=== PATIENT | female | born 1965 | race Caucasian/White ===

== ENCOUNTER 2021-09-14 11:23 | Outpatient (CLI) | payer BC | END 2021-09-14 11:24 | disposition home or self-care (01) | LOC: SCSRAD 11:23 | PROVIDERS: ATTEND Family Medicine | DX: R05.9 Cough, unspecified (principal) | CPT/HCPCS: 71046 ==

== ENCOUNTER 2022-07-22 07:42 | Day surgery (SDC) | payer BC ==
[2022-07-22 07:57] LABS: #Basophils 0.1 thou/uL (0.0-0.2); #Eosinphils 0.5 thou/uL (0.0-0.7); #Lymphocytes 2.2 thou/uL (1.20-3.40); #Monocytes 0.8 thou/uL (0.11-0.59); #Neutrophils 5.5 thou/uL (1.40-6.50); %Basophils 1.1 % (0.0-1.0); %Eosinophils 5.1 % (0.0-10.0); %Lymphocytes 24.3 % (21.0-51.0); %Monocytes 8.4 % (0.0-10.0); %Neutrophils 61.1 % (42.0-75.0); Hemoglobin 13.5 g/dL (12.0-16.0); Mean Corpuscular Hemoglobin 27.7 pg (27.0-31.0); Mean Corpuscular Volume 86.5 fl (78.0-98.0); Mean Platelet Volume 8.4 fL (7.4-10.4); Platelet Count 256 10x3/uL (130-400); RBC Distribution Width 12.7 % (11.5-14.5); Red Blood Cell (RBC) Count 4.87 mill/uL (4.20-5.40)
[2022-07-22 08:09] LABS: INR-International Normal Ratio 0.9; Prothrombin Time 12.7 sec (12.0-14.7)
[2022-07-22 08:10] LABS: PTT 30.3 sec (22.9-36.1)
[2022-07-22] MEDS ORDERED: Sodium Bicarbonate 2.5 MEQ/5 ML VIAL ONE (09:06)
[2022-07-22] MEDS ORDERED: Lidocaine 1% PF 5 ML VIAL ONE (09:06)
[2022-07-22] MEDS ORDERED: fentaNYL 50 mcg/mL 1 mL Vial ONE (09:06)
[2022-07-22] MEDS ORDERED: Midazolam HCl 2 mg/2 ml Vial ONE (09:07)
[2022-07-22 12:20] VITALS: BP 130/72; TEMP 97.9
== END 2022-07-22 11:35 | disposition home or self-care (01) ==
LOC: ULT 07:42
PROVIDERS: ATTEND Internal Medicine Gastroenterology
PROC: 0FB23ZX Excision of Left Lobe Liver, Percutaneous Approach, Diagnostic (ICD-10-PCS; principal; 2022-07-22)
DX: K75.81 Nonalcoholic steatohepatitis (NASH) (principal); K74.00 Hepatic fibrosis, unspecified; K83.1 Obstruction of bile duct; K21.9 Gastro-esophageal reflux disease without esophagitis; M19.90 Unspecified osteoarthritis, unspecified site; I10 Essential (primary) hypertension; E78.00 Pure hypercholesterolemia, unspecified; G47.30 Sleep apnea, unspecified; Z79.890 Hormone replacement therapy; Z79.899 Other long term (current) drug therapy; Z88.1 Allergy status to other antibiotic agents; Z88.2 Allergy status to sulfonamides; Z91.040 Latex allergy status
CPT/HCPCS: 47000; 76942; 85025; 85610; 85730; 88307; 88313; J2250; J3010

== ENCOUNTER 2022-07-25 15:01 | Observation (INO) | payer BC ==
[2022-07-25 17:10] LABS: #Basophils 0.1 thou/uL (0.0-0.2); #Eosinphils 0.5 thou/uL (0.0-0.7); #Monocytes 0.9 thou/uL (0.11-0.59); #Neutrophils 7.2 thou/uL (1.40-6.50); %Basophils 0.9 % (0.0-1.0); %Eosinophils 4.4 % (0.0-10.0); %Lymphocytes 21.4 % (21.0-51.0); %Monocytes 8.1 % (0.0-10.0); %Neutrophils 64.9 % (42.0-75.0); Hemoglobin 13.3 g/dL (12.0-16.0); Mean Corpuscular HGB CONC 31.8 g/dL (32.0-36.0); Mean Corpuscular Hemoglobin 26.3 pg (27.0-31.0); Mean Corpuscular Volume 82.8 fl (78.0-98.0); Mean Platelet Volume 10.3 fL (7.4-10.4); Platelet Count 291 10x3/uL (130-400); RBC Distribution Width 13.8 % (11.5-14.5); Red Blood Cell (RBC) Count 5.05 mill/uL (4.20-5.40); White Blood Cell (WBC) Count 11.1 10x3/uL (4.8-10.8)
[2022-07-25] MEDS ORDERED: Aspirin Chewable 81 MG TAB ONE (17:21)
[2022-07-25] MEDS ORDERED: Naproxen 500 MG TAB ONE (17:21)
[2022-07-25 17:32] LABS: ALT (SGPT) 29 U/L (8-55); AST (SGOT) 21 U/L (5-34); Albumin 4.5 g/dL (3.5-5.0); Alkaline Phosphatase 123 U/L (40-110); Anion Gap 13 mmol/L (10-20); BUN (Urea Nitrogen) 11 mg/dL (9.8-20.1); Bilirubin, Total 0.3 mg/dL (0.2-1.2); CK (CPK) 54 U/L (29-168); Calc. Creatinine Clearance 0 mL/min (70-130); Calcium 9.9 mg/dL (7.8-10.44); Carbon Dioxide 27 mmol/L (22-29); Chloride 103 mmol/L (98-107); Estimated GFR 83; Globulin 3.2 g/dL (2.4-3.5); Glucose 92 mg/dL (70-105); Lipase 16 U/L (8-78); Potassium 3.9 mmol/L (3.5-5.1); Protein, Total 7.7 g/dL (6.0-8.3); Sodium 139 mmol/L (136-145)
[2022-07-25 17:54] LABS: CKMB 0.7 ng/mL (0-6.6)
[2022-07-25] MEDS ORDERED: Ondansetron PF 4 MG/2 ML Vial IVP PRN (20:02)
[2022-07-25] MEDS ORDERED: Acetaminophen 325 MG TAB PO PRN (20:02)
[2022-07-25] MEDS ORDERED: Ondansetron ODT 4 MG TAB PO PRN (20:02)
[2022-07-25 21:22] LABS: Troponin I 0.077 ng/mL (< 0.028)
[2022-07-25] MEDS ORDERED: Morphine 2 MG/ML VIAL SLOW IVP PRN (23:30)
[2022-07-25] MEDS ORDERED: Nitroglycerin 2% Ointment 1 INCH/1 GM Packet TOP SCH (23:30)
[2022-07-25 23:57] LABS: Troponin I 0.099 ng/mL (< 0.028)
[2022-07-26 00:19] VITALS: BMI 36.6
[2022-07-26 04:42] LABS: #Basophils 0.1 thou/uL (0.0-0.2); #Eosinphils 0.7 thou/uL (0.0-0.7); #Monocytes 0.9 thou/uL (0.11-0.59); #Neutrophils 5.4 thou/uL (1.40-6.50); %Basophils 1.1 % (0.0-1.0); %Eosinophils 7.1 % (0.0-10.0); %Lymphocytes 29.4 % (21.0-51.0); %Monocytes 8.4 % (0.0-10.0); %Neutrophils 53.6 % (42.0-75.0); Hemoglobin 13.1 g/dL (12.0-16.0); Mean Corpuscular HGB CONC 31.7 g/dL (32.0-36.0); Mean Corpuscular Hemoglobin 27.1 pg (27.0-31.0); Mean Platelet Volume 10.1 fL (7.4-10.4); Platelet Count 281 10x3/uL (130-400); RBC Distribution Width 13.5 % (11.5-14.5); Red Blood Cell (RBC) Count 4.84 mill/uL (4.20-5.40); White Blood Cell (WBC) Count 10.1 10x3/uL (4.8-10.8)
[2022-07-26 05:06] LABS: Mean Corpuscular Volume 85.3 fl (78.0-98.0)
[2022-07-26 05:12] LABS: ALT (SGPT) 26 U/L (8-55); AST (SGOT) 20 U/L (5-34); Albumin 4.2 g/dL (3.5-5.0); Alkaline Phosphatase 113 U/L (40-110); Anion Gap 9 mmol/L (10-20); BUN (Urea Nitrogen) 13 mg/dL (9.8-20.1); Bilirubin, Total 0.4 mg/dL (0.2-1.2); Calc. Creatinine Clearance 123 mL/min (70-130); Calcium 10.6 mg/dL (7.8-10.44); Carbon Dioxide 29 mmol/L (22-29); Chloride 106 mmol/L (98-107); Estimated GFR 91; Globulin 2.8 g/dL (2.4-3.5); Glucose 107 mg/dL (70-105); Sodium 140 mmol/L (136-145)
[2022-07-26] MEDS ORDERED: LEVOTHYROXINE SODIUM 100 MCG PO SCH (06:00)
[2022-07-26] MEDS ORDERED: Levothyroxine Sodium 100 MCG TAB PO SCH (06:00)
[2022-07-26 07:28] LABS: Cardiac Risk 3.6 (Less than 4.5)
[2022-07-26] MEDS ORDERED: Potassium Chloride 10 MEQ TAB PO SCH (08:00)
[2022-07-26] MEDS ORDERED: DULoxetine 60 MG CAP ONE (08:36)
[2022-07-26] MEDS: Potassium Chloride 10 MEQ TAB PO SCH ×2 (08:42→16:33)
[2022-07-26] MEDS: Furosemide 20 MG TAB PO SCH ×2 (08:44→16:31)
[2022-07-26] MEDS ORDERED: Nitroglycerin 2% Ointment 1 INCH/1 GM Packet TOP SCH (09:00)
[2022-07-26] MEDS ORDERED: Losartan 25 MG TAB PO SCH (09:00)
[2022-07-26] MEDS ORDERED: ACIDOPH PARACASEI B LACTIS PO SCH (09:00)
[2022-07-26] MEDS ORDERED: Losartan 50 MG TAB PO SCH ×2 (09:00)
[2022-07-26] MEDS ORDERED: Pregabalin 100 MG CAP PO SCH (09:00)
[2022-07-26] MEDS ORDERED: Famotidine 20 MG TAB PO SCH (09:00)
[2022-07-26] MEDS ORDERED: PITAVASTATIN 4 MG PO SCH (09:00)
[2022-07-26] MEDS ORDERED: THEANINE PO SCH (09:00)
[2022-07-26] MEDS ORDERED: Fish Oil 1,000 MG CAP PO SCH (09:00)
[2022-07-26] MEDS ORDERED: Estrogens, Conjugated 0.3 MG TAB PO SCH (09:00)
[2022-07-26] MEDS ORDERED: Pregabalin 50 MG CAP PO SCH (09:00)
[2022-07-26] MEDS ORDERED: BOSWELLIA SERRA PO SCH (09:00)
[2022-07-26] MEDS ORDERED: D3 PO SCH (09:00)
[2022-07-26] MEDS ORDERED: DULoxetine 60 MG CAP PO SCH (09:00)
[2022-07-26] MEDS ORDERED: GLUCOSAMINE PO SCH (09:00)
[2022-07-26] MEDS ORDERED: Atorvastatin Calcium 20 MG TAB PO SCH (09:00)
[2022-07-26] MEDS ORDERED: Furosemide 20 MG TAB PO SCH (09:00)
[2022-07-26] MEDS ORDERED: Loratadine 10 MG TAB PO SCH (09:00)
[2022-07-26 10:07] LABS: Troponin I 0.078 ng/mL (< 0.028)
[2022-07-26 16:22] VITALS: BP 145/63; TEMP 98.1
[2022-07-26] MEDS ORDERED: Lorazepam 1 MG TAB PO SCH ×2 (21:00)
== END 2022-07-26 18:13 | disposition home or self-care (01) ==
LOC: ERS 15:01 → 2SW 19:09
PROVIDERS: ADMIT Emergency Medicine; ATTEND Emergency Medicine
DX: R07.89 Other chest pain (principal); R73.03 Prediabetes; G47.33 Obstructive sleep apnea (adult) (pediatric); I10 Essential (primary) hypertension; E03.9 Hypothyroidism, unspecified; K76.0 Fatty (change of) liver, not elsewhere classified; E78.5 Hyperlipidemia, unspecified; M79.7 Fibromyalgia; G89.29 Other chronic pain; M25.569 Pain in unspecified knee; Z79.85 Long-term (current) use of injectable non-insulin antidiabetic drugs; Z79.890 Hormone replacement therapy; Z79.899 Other long term (current) drug therapy; Z88.1 Allergy status to other antibiotic agents; Z88.2 Allergy status to sulfonamides; Z91.040 Latex allergy status
CPT/HCPCS: 36415; 71045; 78452; 80053; 80061; 82550; 82553; 83690; 84443; 84484; 85025; 93005; 93017; 94760; A9500; G0378; Q0162

== ENCOUNTER 2022-11-23 11:14 | Outpatient (CLI) | payer BC | END 2022-11-23 11:15 | disposition home or self-care (01) | LOC: RAD 11:14 | PROVIDERS: ATTEND Family Medicine | DX: M54.50 Low back pain, unspecified (principal); M47.26 Other spondylosis with radiculopathy, lumbar region | CPT/HCPCS: 72072; 72100 ==